=== PATIENT | male | born 1945 | race Caucasian/White ===

== ENCOUNTER → 2019-07-10 12:05 | Outpatient (CLI) | payer MEDICARE, MEDICAID, SELFPAY ==
--- NOTE | 2019-07-10 12:09 | VDUE_ITS ---
Reason For Study: CKD Stage 4 Right Arm Left Arm Right cephalic vein is compressible. Left cephalic vein is compressible. Right Cephalic Vein at the shoulder Left Cephalic Vein at the shoulder measures .38 x .38 cm. measures .12 x .13 cm. Right Cephalic Vein mid bicep measures .25 Left Cephalic Vein at mid bicep measures .17 x .25 cm. x .17 cm. Right Cephalic Vein above antecub Left Cephalic Vein above antecub measures .22 measures .28 x .32 cm. x .22 cm. Right Cephalic Vein below antecub Left Cephalic Vein below antecub measures .34 measures .17 x .21 cm. x .35 cm. Right Cephalic Vein in the forearm Left Cephalic Vein in the forearm measures .18 x .18 cm. measures .19 x .22 cm. Right Cephalic Vein at the wrist measures .16 Left Cephalic Vein at the wrist measures .25 x .17 cm. x .26 cm. Right basilic vein is compressible. Left basilic vein is compressible. Right Basilic Vein mid bicep measures .43 Basilic vein at bicep measures .58 x .58 cm. x .39 cm. Basilic vein above antecub measures .46 x .45 Right Basilic Vein above antecub measures .39 cm. x .38 cm. Basilic V is too small to assess below this Right Basilic Vein below antecub measures .09 level. x .11 cm. Brachial Art .39 x .41 cm. Right Basilic Vein in the forearm Brachial Art 79.0 cm/s measures .04 x .07 cm. Radial Art .19 x .19 cm. Right Basilic Vein at the wrist measures .09 Radial Art 64.7 cm/s. x .09 cm. Brachial Art .39 x .42 cm. Brachial Art 67.3 cm/s Radial Art .18 x .19 cm. Radial Art 63.4 cm/s. Interpretation Summary Patent and compressible bilateral upper extremity cephalic and basilic veins with dimensions as noted. Diminutive right forearm basilic vein and too small to measure left forearm basilic vein. Borderline bilateral radial artery diameters Adequate bilateral brachial artery diameter and flow Ordering Physician: KATHY TRAN Referring Physician: Gabriel Mendoza MD Performed By: Evgeny Zheng RVT ?
== END ==
PROVIDERS: Family Provider Family Medicine; PCP Family Medicine
DX: Z01.818 Encounter for other preprocedural examination (principal); N18.4 Chronic kidney disease, stage 4 (severe)
CPT/HCPCS: 93970; 93971; G0365

== ENCOUNTER 2019-08-23 08:51 | Day surgery (SDC) | payer MEDICARE, MEDICAID, SELFPAY ==
--- NOTE | 2019-07-30 01:38 | HP_ITS ---
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 Is patient in pain?: No Allergies No Known Allergies Allergy (Verified 07/30/19 13:13) Medications allopurinol 100 mg tablet 100 mg PO DAILY 07/30/19 [History Confirmed 07/30/19] amlodipine 2.5 mg tablet 2.5 mg PO DAILY 07/30/19 [History Confirmed 07/30/19] calcitriol 0.25 mcg capsule 0.25 mcg PO Q OTHER DAY cap 07/30/19 [History Confirmed 07/30/19] calcium acetate 667 mg capsule 667 mg PO TID 07/30/19 [History Confirmed 07/30/19] furosemide 40 mg tablet 40 mg PO BID tab 07/30/19 [History Confirmed 07/30/19] levothyroxine 75 mcg capsule 75 mcg PO DAILY 07/30/19 [History] multivitamin,ch-xqmt-puyaakea tablet 1 tab PO DAILY 07/30/19 [History Confirmed 07/30/19] sodium bicarbonate 325 mg tablet 325 mg PO DAILY 07/30/19 [History Confirmed 07/30/19] tamsulosin 0.4 mg capsule 0.4 mg PO DAILY 07/30/19 [History Confirmed 07/30/19] [facility] Medical History (Updated 07/30/19 @ 13:30 by Gabriel Mendoza MD) Chronic renal insufficiency, stage IV (severe) (Chronic) BPH (benign prostatic hyperplasia) (Acute) HTN (hypertension) (Chronic) Surgical History (Updated 07/30/19 @ 13:12 by Vero Angelo) No pertinent past surgical history (Acute) Family History (Updated 07/30/19 @ 13:12 by Vero Angelo) Father Diabetes Heart disease Hypertension Father Diabetes Heart disease Hypertension Breast cancer Social History (Updated 07/30/19 @ 13:37 by Gabriel Mendoza MD) Smoking Status: Never smoker HPI HPI HPI: JUAN JOSE ZULETA, is a 73 M who presents to the office today for HPI HPI Surgical H&P: Yes HPI: JUAN JOSE ZULETA, is a 73 M who presents to the office today for surgical consultation regarding hemodialysis fistula creation. The patient is referred by and a written copy of my surgical consult will be returned to him. 73-year-old gentleman. He does have some developmental disability. He is accompanied by family today. He is right arm dominant. His renal function is been progressively declining. He now has stage IV disease. As of June 21, 2019 his white count was 6.2 with a hemo-12.9 hematocrit 39.1 platelet count 328,000. BUN 83 with a creatinine of 4.2 and an estimated GFR of 14 [facility] [address] [place] [address] Saphenous Vein Mapping, Bilat 07/10/19 1403 MR#: [id number] Name:JUAN JOSE ZULETA [facility] #:[id number] : 1945 73From:Gabriel Mendoza MD Attending Dr: Status: REG CLI Ordering Dr: KATHY TRANDate: 07/10/19 Location:[facility]: Admitted: Reason For Study: CKD Stage 4 Right Arm Left Arm Right cephalic vein is compressible. Left cephalic vein is compressible. Right Cephalic Vein at the shoulder Left Cephalic Vein at the shoulder measures .38 x .38 cm. measures .12 x .13 cm. Right Cephalic Vein mid bicep measures .25 Left Cephalic Vein at mid bicep measures .17 x .25 cm. x .17 cm. Right Cephalic Vein above antecub Left Cephalic Vein above antecub measures .22 measures .28 x .32 cm. x .22 cm. Right Cephalic Vein below antecub Left Cephalic Vein below antecub measures .34 measures .17 x .21 cm. x .35 cm. Right Cephalic Vein in the forearm Left Cephalic Vein in the forearm measures .18 x .18 cm. measures .19 x .22 cm. Right Cephalic Vein at the wrist measures .16 Left Cephalic Vein at the wrist measures .25 x .17 cm. x .26 cm. Right basilic vein is compressible. Left basilic vein is compressible. Right Basilic Vein mid bicep measures .43 Basilic vein at bicep measures .58 x .58 cm. x .39 cm. Basilic vein above antecub measures .46 x .45 Right Basilic Vein above antecub measures .39 cm. x .38 cm. Basilic V is too small to assess below this Right Basilic Vein below antecub measures .09 level. x .11 cm. Brachial Art .39 x .41 cm. Right Basilic Vein in the forearm Brachial Art 79.0 cm/s measures .04 x .07 cm. Radial Art .19 x .19 cm. Right Basilic Vein at the wrist measures .09 Radial Art 64.7 cm/s. x .09 cm. Brachial Art .39 x .42 cm. Brachial Art 67.3 cm/s Radial Art .18 x .19 cm. Radial Art 63.4 cm/s. Interpretation Summary Patent and compressible bilateral upper extremity cephalic and basilic veins with dimensions as noted. Diminutive right forearm basilic vein and too small to measure left forearm basilic vein. Borderline bilateral radial artery diameters Adequate bilateral brachial artery diameter and flow Ordering Physician: KATHY TRAN Referring Physician: Gabriel Mendoza MD Performed By: Evgeny Zheng RVT ? 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 ROS General General: Yes weight change; no appetite, fatigue, colon cancer, breast cancer or weakness HEENT HEENT: No difficulty swallowing, eye injury, eye surgery, swollen glands or hoarseness Endo Endocrine: No thyroid disease, diabetes mellitus, thyroid cancer, Hair loss, heat intolerance or cold intolerance Cardio Cardiovascular: Yes high blood pressure; no murmur, pacemaker, heart disease, atrial fibrillation, heart attack, heart stent, palpitations, shortness of breat with exertion or chest pain Resp Respiratory: No shortness of breath, No sleep apnea, No cough, No COPD, No asthma, No emphysema, No wheezing Gastro Gastrointestinal: No abdominal pain, No nausea or vomiting, No diarrhea, No constipation, No blood in stool, No acid reflux, No hemorrhoids, No ulcers, No gallbladder problem, No black,tarry stools Galo Hematologic: No blood thinners, No blood disorders, No bleeding, No anemia, No blood clots Neuro Neurologic: No weakness Exam Const General: cooperative, healthy appearing, comfortable, no acute distress Nutritional Appearance: average body habitus Orientation: alert, awake HENMT Head: normal to inspection Eyes General: appearance normal, both eyes and all related structures Resp Effort & Inspection: normal respiratory effort Auscultation: clear to auscultation bilaterally Cardio Rate: regular rate Rhythm: regular rhythm Heart Sounds: no murmurs GI Inspection: other (Mildly distended) Palpation: soft, no hepatosplenomegaly Auscultation: normal bowel sounds Skin Rashes: no rashes Neuro Cognition: abnormal cognition Extrem General: no calf tenderness bilaterally Other: Left radial artery 3+. Left ulnar artery 2+. Normal Aquilino test. Quite generous left cephalic vein close to the wrist. I performed ultrasound inspection demonstrating that it quite generous in size much more so than the vein mapping would suggest. Psych Affect: normal affect Assessment & Plan Problems 1. Chronic renal insufficiency, stage IV (severe) N18.4 Plan I proposed for the patient a left forearm radial to cephalic arteriovenous hemodialysis fistula creation. I anticipate performing ultrasound vein mapping and ligating any side branches that seem feasible. I have discussed with the patient and family members the technique, benefits, risks and alternatives. They have had an opportunity to ask and have questions answered. We will schedule and proceed at their discretion. CC: Dr. Estrella Mendoza M.D., F.A.C.S. Coding Level of Care Code 78177 Diagnoses Chronic renal insufficiency, stage IV (severe) N18.4 07/30/19 1338 <Electronically signed by Gabriel whelan MD> Date _ Gabriel Mendoza MD I have re-examined the patient. There are no clinical changes since date of exam.
--- NOTE | 2019-08-03 16:21 | EKG12_ITS ---
Test Reason : PAT Blood Pressure : / mmHG Vent. Rate : 070 BPM Atrial Rate : 070 BPM P-R Int : 198 ms QRS Dur : 140 ms QT Int : 402 ms P-R-T Axes : 059 010 068 degrees QTc Int : 434 ms Normal sinus rhythm Non-specific intra-ventricular conduction block Cannot rule out Anterior infarct , age undetermined Abnormal ECG Confirmed by FAISAL MAC, AHSAN ([id number]), assistant film editor OLIVA KATZ ([id number]) on 08/06/2019 9:49:51 AM Referred By: Gabriel Mendoza Confirmed By:AHSAN MALONE MD
[2019-08-03 17:04] LABS: Hematocrit 40.3 % (40-54); Hemoglobin 13.1 g/dL (13.0-16.5); Mean Corp Hgb Conc 32.5 g/dL (32-36); Mean Corpuscular Volume 92.4 fL (80-94); Mean Platelet Vol. 8.9 fl (6.2-12.0); Platelet Count 277 K/mm3 (150-450); RBC Distribution Width CV 14.7 % (11.6-14.6); RBC Distribution Width SD 49.9 fl (35.1-43.9); Red Blood Count 4.36 M/mm3 (4.6-6.2); White Blood Count 5.7 K/mm3 (4.4-11.0)
[2019-08-03 17:36] LABS: BUN 88 mg/dL (7-18); EST Glomerular Filtration Rate 11 mL/min (>60); Glucose 98 mg/dL (74-106)
[2019-08-03 17:37] LABS: Anion Gap 10 (5-15); BUN/Creat Ratio 16.6 RATIO (10-20); Calcium,Total 8.9 mg/dL (8.5-10.1); Chloride 102 mmol/L (98-107); Est Glom Filt Rate - Afr Amer 14 mL/min (>60); Potassium 4.1 mmol/L (3.5-5.1); Sodium Level 139 mmol/L (136-145)
[2019-08-23] VITALS (7 sets, daily range): BP systolic 122–153; BP diastolic 70–87; PULSE 69–76; RESP 16; TEMP 36.5–36.6; O2SAT 95–98; BMI 28.3
[2019-08-23] MEDS: 0.45% Normal Saline 1,000 ML 30 ML IV (09:58)
--- NOTE | 2019-08-23 10:30 | PCM.DC.FIST ---
Discharge Diet: Renal Diet Discharge Activity: May Not Drive - for 2-3 days or while taking narcotic pain medications., May Shower, May Take a Tub Bath - in 5 days. Lifting Restrictions: 5 pounds Keep extremity elevated above heart level: - - Keep arm elevated above the heart level for 3 days. Additional Activity Instructions:: Exercise hand vigorously with a stress ball. Call your doctor if your incision/area has: Continuous Slow Oozing, Sudden Increased Bleeding - apply pressure and call your doctor., Increased Pain/ Swelling, Increased Redness, Foul Smelling Discharge Call your doctor if you observe: Fever of 101 or Higher Suture Line Care: Avoid Pulling/Pushing, Avoid Pinching/Bending Cleanse incision/area with: Keep Dressing Clean & Dry Additional Dressing/Incision Instructions:: Change or remove dressing in one day. May protect with a gauze bandaid. Allergies/Adverse Reactions: Allergies No Known Allergies Allergy (Verified 08/23/19 09:19) Medications to take at Discharge amlodipine 2.5 mg tablet 2.5 mg PO DAILY 07/30/19 calcitriol 0.25 mcg capsule 0.25 mcg PO DAILY cap 07/30/19 furosemide 40 mg tablet 40 mg PO DAILY tab 07/30/19 levothyroxine 75 mcg capsule 75 mcg PO DAILY 07/30/19 multivitamin,ue-kabg-etojfvha tablet 1 tab PO DAILY 07/30/19 sodium bicarbonate 325 mg tablet 650 mg PO BID 07/30/19 tamsulosin 0.4 mg capsule 0.4 mg PO QHS 07/30/19 Aspirin [Aspir-Low] 81 mg PO DAILY 08/02/19 Saw/Vit E/Sod Xena/Lyc/Beta/Pyg [Prostate Health Caplet] 2 ea PO QHS 08/02/19 Orders to be completed after discharge: 12 Lead EKG [CVS] Time Frame: 08/02/19, Facility: [facility], Location: Cardiovascular Services Basic Metabolic Profile (BMP) Time Frame: 08/02/19, Facility: [facility], Location: Laboratory CBC-Complete Blood Cnt No Diff Time Frame: 08/02/19, Facility: [facility], Location: Laboratory Primary Care Physician: Gabriel Palacios MD [Primary Care Provider] - Test Results: Test results from this visit will be discussed in further detail at your follow-up appointment, if applicable. Please Follow Up With: Gabriel Mendoza MD - [phone] When: Call to make an appointment for suture removal and follow up in 10-14 days.
[2019-08-23] MEDS: Bupivacaine Mpf 0.5% 30 ML VIAL (10:44)
[2019-08-23] MEDS: Heparin Injection (Vial) 5,000 UNIT/ML VIAL 5000 UNIT (10:44)
--- NOTE | 2019-08-23 11:31 | PCM.OPRPT ---
Problem List (1) Chronic renal insufficiency, stage IV (severe) Status: Chronic Report of Operation Date of Procedure: 08/23/19 Pre-Operative Diagnosis: Stage IV chronic renal insufficiency Post-Operative Diagnosis: Same Surgery/Procedure Performed:: Left forearm radial cephalic arteriovenous fistula creation Description of Surgical Findings:: Timeout and informed consent was obtained. 73-year-old gentleman was taken out from placement table underwent monitored anesthesia care. The left extremity sterilely prepped and draped. 1% lidocaine mixed 50-50 with 0.5% Marcaine was used as a local anesthetic. Total 6 cc was used. Ultrasound was used to map the cephalic vein at the wrist. Then local was instilled and oblique transverse incision was created sharp blunt dissection was used to dissect the vein free it was inked marked. Sharp and blunt dissection used to identify the radial artery circumferential control was obtained and it was elevated to a degree. The patient then received 8000 units of heparin. The vein was ligated distally with a Hemoclip was then spatulated. The artery was secured with small vascular clamps and 11 blade was used to make an arteriotomy which was extended with Beatty scissors. A end-to-side venous to arterial anastomosis was created with running 7-0 Prolene. Prior to completion there was good antegrade retrograde flow. The anastomosis was completed there is appear to be good flow throughout the fistula. It could appear to have a good positional lie. That wound was closed with a deep suture of interrupted 3-0 Vicryl and then a running septic or 4 Monocryl. Slightly more proximally in the wrist by about 4 cm there was a dorsal tributary extending to the hand. I instilled local made a small incision identified that ligated that with a 3-0 Vicryl in the Hemoclip. That wound also was closed with interrupted 4-0 Monocryl subdermal stitch. Steri-Strips and Telfa and tape dressings applied. Sponge and instrument and needle counts were reported to the surgeon to be correct. Specimens none. Drains none. Blood loss minimal. The patient was taken to the recovery area in the satisfied condition without apparent complication. Hand was viable at the completion. Gabriel Mendoza M.D., F.A.C.S. Type of Anesthesia:: Local MAC Anesthesiologist: Frank Mcgregor
== END 2019-08-23 13:44 | disposition home or self-care (01) ==
LOC: SDC 08:52 → AC 08:52
PROVIDERS: Family Provider Family Medicine; PCP Family Medicine; Referring Provider Surgery; Visit Provider Surgery
PROC: (CPT 36821; principal; 2019-08-23 10:45)
DX: Z45.2 Encounter for adjustment and management of vascular access device (principal); I12.9 Hypertensive chronic kidney disease with stage 1 through stage 4 chronic kidney disease, or unspecified chronic kidney disease; N18.4 Chronic kidney disease, stage 4 (severe); F78 Other intellectual disabilities; Z79.82 Long term (current) use of aspirin; Z79.899 Other long term (current) drug therapy
CPT/HCPCS: 01844; 36821; 36415; 80048; 85027; 93005; J2405

== ENCOUNTER 2024-11-15 07:28 | Day surgery (SDC) | payer MEDICARE, MEDICAID, SELFPAY ==
[2024-11-14 08:28] VITALS: BMI 28.7
--- NOTE | 2024-11-15 08:07 | PCM.HP.STD ---
HPI - General HPI Narrative JUAN JOSE ZULETA, is a 78 M who presents with a left forearm AVF with increased bleeding after decannulation for the past several months, prior infiltrations. [facility] Medical History Chronic renal insufficiency, stage IV (severe) BPH (benign prostatic hyperplasia) HTN (hypertension) Home Medications ?Medication ?Instructions ?Recorded ?Last Taken ?Type amlodipine 2.5 mg tablet 2.5 mg PO DAILY htn 07/30/19 11/15/24 History calcitriol 0.25 mcg capsule 0.25 mcg PO DAILY 07/30/19 11/15/24 History furosemide 40 mg tablet 40 mg PO DAILY 07/30/19 Unknown History levothyroxine 75 mcg capsule 75 mcg PO DAILY 07/30/19 11/15/24 History multivitamin,ym-skqc-hfdntyqt 1 tab PO DAILY 07/30/19 11/15/24 History (Complete Multivitamin tablet) sodium bicarbonate 325 mg tablet 650 mg PO BID kidneys 07/30/19 11/15/24 History tamsulosin 0.4 mg capsule (Flomax) 0.4 mg PO QHS prostate 07/30/19 11/15/24 History aspirin 81 mg tablet,delayed 81 mg PO DAILY 08/02/19 11/15/24 History release saw palm 160 mg-vit E 100 2 ea PO QHS prostate 08/02/19 Unknown History unit-selen 100 gxv-fsve-punzcg-pygeum tablet Allergy/AdvReac Type Severity Reaction Status Date / Time No Known Allergies Allergy Verified 08/28/24 15:16 Family History Father Diabetes Heart disease Hypertension Father Diabetes Heart disease Hypertension Breast cancer Surgical History history left forearm AV Fistula creation (~08/23/19) Social History Smoking Status: Never smoker ROS Constitutional Constitutional: Denies chills, fever(s), frequent falls, lethargy or weakness Eyes Eyes: Denies blind spots, change in vision or loss of vision ENT HEENT: Denies bleeding gums, hoarseness or sore throat Cardiovascular Cardiovascular: Denies abdominal pain, bluish discoloration of hand/feet, chest pain with activity, claudication, cold extremities, cyanosis, dyspnea on exertion, erythema on extremities, irregular heart rhythm, leg edema, leg ulcers, numbness in extremities or weakness in extremities Respiratory/Chest Respiratory/Chest: Denies cough, excessive phlegm production, shortness of breath at rest, shortness of breath with exertion or wheezing Gastrointestinal Gastrointestinal: Denies anorexia, change in stool character, constipation, diarrhea, melena or rectal bleeding Genitourinary Genitourinary: Denies dysuria or hematuria Musculoskeletal Musculoskeletal: Denies abnormal gait Integumentary Integumentary: Reports other Details: ; Denies erythema, non-healing lesions or wounds Neurologic Neurologic: Denies abnormal speech, focal weakness, headache(s), loss of vision, numbness, paresthesias or sensory deficit Hematologic/Lymphatic Hematologic/Lymphatic: Denies easy bleeding, easy bruising or lymphadenopathy Vital Signs Vital Signs Vital Signs: Weight Weight: 183 lb Body Mass Index (BMI) 28.7 Physical Exam Const alert, oriented x3, no apparent distress and healthy appearing General Appearance: cooperative; Negative for combative or lethargic Orientation / Consciousness: awake Exam Limitations: no limitations HEENT Head and Scalp: normocephalic and atraumatic Eyes EOMs intact bilaterally General Eye: normal appearance of both eyes Neck full ROM General: trachea midline Resp normal respiratory effort and no use of accessory muscles Effort and Inspection: Negative for labored, stridor or audible wheezes Cardio regular rate and regular rhythm Peripheral Pulses: radial pulses present Back/Spine Cervical Spine: cervical ROM normal Extremity full ROM, normal capillary refill and no clubbing, cyanosis or edema Skin no rashes or lesions noted and no wounds Neuro oriented x3, CN's II-XII intact bilaterally, no focal motor deficits and no sensory deficits noted Psych thought process normal, cooperative, affect normal, speech normal and activity/motor behavior normal Assessment & Plan Assessment/Plan (1) Dialysis AV fistula malfunction: QUALIFIERS: Encounter type: subsequent encounter Qualified Code(s): T82.590D - Other mechanical complication of surgically created arteriovenous fistula, subsequent encounter PLAN: -excellent thrill -with exam and reported problems would anticipate outflow stenosis if anything -fistulagram
--- NOTE | 2024-11-15 10:45 | PCM.OPRPT ---
Operative Report (Standard) Operative Information Date of Procedure: 11/15/24 Pre-Operative Diagnosis: Fistula malfunction, left radiocephalic Post-Operative Diagnosis: Same, normal adequate caliber fistula Surgery/Procedure Performed: Fistulogram left upper extremity, radiocephalic Intravascular ultrasound superior vena cava, left innominate vein, left subclavian axillary vein, left brachial vein, left cephalic vein machine brush maker: No Type of Anesthesia: Local and Sedation,Conscious Procedure Start Time: 09:15 Procedure Stop Time: 09:45 Select all DRAINS/GRAFTS/IMPLANTS that apply: None Estimated Blood Loss: 3 Specimen collected: No Description of surgery: HPI: Patient is a 78-year-old male with a previously created left radiocephalic AV fistula which has been in use for several years. Several months ago he had episodes of infiltration and some prolonged bleeding as well as increased venous return pressures according to his dialysis unit. He is taken now for fistulogram with possible intervention. Description of procedure: Upon obtaining form consent and verification correct patient procedure site patient taken to the Hydraulic Auto Jack Mechanic was positioned prepped and draped in usual sterile fashion. Time was performed and conscious sedation administered with fentanyl. Skin overlying the proximal fistula is anesthetized with 1% lidocaine the vessel accessed with a micropuncture needle wire. This then exchanged for a 6 Slovak sheath which was advanced without resistance. Through a 6 Slovak sheath subtraction angiography of the fistula was performed including reflux into the arterial anastomosis and outflow to the central venous system including the superior vena cava. The fistula had a brisk contrast transit with no stenosis identified and no significant collateral formation. All of the vessels were adequate caliber though no focal aneurysms were identified and no suggestion of intraluminal thrombus was observed. Next an 018 wire was advanced traversing the fistula outflow and positioned in the superior vena cava. Intravascular ultrasound probe was then advanced over the wire and recorded pullback performed of the SVC, left innominate vein, left subclavian axillary vein, left brachial vein, cephalic vein. This revealed no focal stenosis in the entirety of the length of the venous outflow was adequate in caliber. 3-0 Ethilon pursestring was then placed at the access site and the sheath withdrawn followed by 5 minutes of manual pressure with satisfactory stasis noted. The patient was then taken to the recovery area plan discharged home. Surgical Findings: See above Complications Complications: No
== END 2024-11-15 10:30 | disposition home or self-care (01) ==
PROVIDERS: PCP Family Medicine; Referring Provider Surgery Trauma Surgery; Visit Provider Surgery Trauma Surgery
DX: T82.590A Other mechanical complication of surgically created arteriovenous fistula, initial encounter (principal); N18.4 Chronic kidney disease, stage 4 (severe); I12.9 Hypertensive chronic kidney disease with stage 1 through stage 4 chronic kidney disease, or unspecified chronic kidney disease; X58.XXXA Exposure to other specified factors, initial encounter; Z99.2 Dependence on renal dialysis; Z79.899 Other long term (current) drug therapy
CPT/HCPCS: 36901; 37252; 37253; 76937; 99152; 99153; C1753; C1769; C1894; Q9967